=== PATIENT | male | born 1965 | race Caucasian/White ===

== ENCOUNTER 2023-03-08 13:03 | Inpatient (IN) | payer OTHER ==
[~2023-03-08] VITALS: Ht 165.1 cm; Wt 70.3 kg
[2023-03-08 18:36] LABS: GLUCOMETER DEV NAME(LOC) 2WR.2B
[2023-03-08 20:00] VITALS: BP 101/64; PULSE 74; RESP 16; TEMP 98.3; O2SAT 98
[2023-03-08] MEDS ORDERED: DOCUSATE SODIUM 283 MG/5 ML MINI-ENEMA PR PRN (21:30)
[2023-03-08] MEDS ORDERED: DEXTROSE 50%-WATER 25 GM/50 ML SYRINGE IVP PRN (21:30)
[2023-03-08] MEDS ORDERED: CLOPIDOGREL BISULFATE 75 MG TABLET PO ONE (21:30)
[2023-03-08] MEDS ORDERED: ONDANSETRON HCL 4 MG TABLET PO PRN (21:30)
[2023-03-08] MEDS: MELATONIN 5 MG TABLET PO PRN (22:44)
[2023-03-08] MEDS: SENNOSIDES 8.6 MG TABLET PO SCH (22:44)
[2023-03-08] MEDS: INSULIN LISPRO 100 UNITS/ML SQ PRN (22:45)
[2023-03-08] MEDS ORDERED: INSULIN GLARGINE,HUM.REC.ANLOG 100 UNITS/ML SQ ONE (23:00)
[2023-03-08] MEDS: OxyCODONE HCL 10 MG IR TABLET PO PRN (23:18)
[2023-03-09 00:43] VITALS: O2SAT 98
[2023-03-09 06:01] LABS: GLUCOMETER DEV NAME(LOC) 2WR.1C
[2023-03-09] MEDS: ACETAMINOPHEN 325 MG TABLET PO PRN ×3 (06:44→18:37)
[2023-03-09 06:46] LABS: GLUCOMETER DEV NAME(LOC) 2WR.1C
[2023-03-09 06:55] LABS: BASOPHILS % (AUTO) 0.4 % (0.0-2.0); EOSINOPHILS % (AUTO) 1.2 % (1.0-6.0); HEMATOCRIT 37.9 % (41-53); HEMOGLOBIN 12.8 g/dL (13.5-17.5); LYMPHOCYTES # (AUTO) 2.5 K/uL (1.0-4.8); LYMPHOCYTES % (AUTO) 26.9 % (22.0-44.0); MEAN CORPUSCULAR HEMOGLOBIN 29.9 pg (26.0-34.0); MEAN CORPUSCULAR HGB CONC 33.8 G/dL (31.0-37.0); MEAN CORPUSCULAR VOLUME 89 fL (80-100); MONOCYTES # (AUTO) 0.9 K/uL (0.1-1.0); MONOCYTES % (AUTO) 9.9 % (2.0-9.0); NEUTROPHILS # (AUTO) 5.7 K/uL (1.8-7.7); NEUTROPHILS % (AUTO) 61.6 % (40.0-70.0); PLATELET COUNT (AUTO) 620 K/uL (150-450); RED BLOOD CELL COUNT(AUTO) 4.29 MIL/uL (4.50-5.90); RED CELL DISTRIBUTION WIDTH 13.7 % (11.5-14.5)
[2023-03-09] MEDS ORDERED: PNEUMOCOCCAL VACCINE POLYVALENT 0.5 ML VIAL [PPSV23] IM. ONE (07:00)
[2023-03-09 07:25] LABS: ALANINE AMINOTRANSFERASE 49 U/L (12-78); ALKALINE PHOSPHATASE 116 U/L (46-116); ANION GAP 11 mmol/L (8-16); ASPARTATE AMINOTRANSFERASE 31 U/L (15-37); BILIRUBIN,TOTAL 0.5 mg/dL (0.1-1.0); CALCIUM, TOTAL 9.2 mg/dL (8.8-10.5); CARBON DIOXIDE 24 mmol/L (22-29); CHLORIDE 105 mmol/L (98-107); CREATININE 0.95 mg/dL (0.60-1.30); GLOMERULAR FILTR. RATE CALC > 60 mL/min (>60); GLUCOSE,RANDOM 137 mg/dL (70-110); SODIUM SERUM 140 mmol/L (136-145); TOTAL PROTEIN, SERUM 7.4 g/dL (6.4-8.2)
[2023-03-09] MEDS ORDERED: DAPAGLIFLOZIN PROPANEDIOL 5 MG TABLET PO SCH (08:00)
[2023-03-09] MEDS: DAPAGLIFLOZIN PROPANEDIOL 5 MG TABLET PO SCH ×2 (08:13→09:00)
[2023-03-09] MEDS: DOCUSATE SODIUM 100 MG CAPSULE PO SCH ×2 (08:14→21:27)
[2023-03-09] MEDS: LISINOPRIL 10 MG TABLET PO SCH (08:15)
[2023-03-09] MEDS: POLYETHYLENE GLYCOL 3350 17 GM PACKET PO SCH (08:18)
[2023-03-09] MEDS: ETHYL ALCOHOL 62% ANTISEPTIC NASAL SANITIZER 0.6 ML AMPUL NASAL SCH ×2 (08:18→21:27)
[2023-03-09] MEDS: EZETIMIBE 10 MG TABLET PO SCH (08:19)
[2023-03-09] MEDS: FAMOTIDINE 20 MG TABLET PO SCH (08:19)
[2023-03-09] MEDS: CARVEDILOL 6.25 MG TABLET PO SCH ×2 (08:19→21:31)
[2023-03-09] MEDS: ATORVASTATIN CALCIUM 40 MG TABLET PO SCH ×2 (09:00→21:27)
[2023-03-09] MEDS ORDERED: ATORVASTATIN CALCIUM 40 MG TABLET PO SCH (09:00)
[2023-03-09 09:05] VITALS: BP 119/67; PULSE 70; RESP 18; TEMP 98.6; O2SAT 98
[2023-03-09] MEDS: ENOXAPARIN SODIUM 40 MG/0.4 ML PF SYRINGE SQ SCH (09:23)
[2023-03-09] MEDS ORDERED: ENOXAPARIN SODIUM 30 MG/0.3 ML PF SYRINGE SQ SCH (10:00)
[2023-03-09 11:30] VITALS: BP 122/64; PULSE 81; RESP 18; O2SAT 98
[2023-03-09 12:46] LABS: GLUCOMETER DEV NAME(LOC) 2WR.2B
[2023-03-09 14:23] VITALS: O2SAT 98
[2023-03-09 17:06] LABS: GLUCOMETER DEV NAME(LOC) 2WR.2B
[2023-03-09] MEDS: INSULIN LISPRO 100 UNITS/ML SQ PRN ×2 (17:41→21:30)
[2023-03-09 20:10] VITALS: BP 96/60; PULSE 72; RESP 18; TEMP 98.7; O2SAT 97
[2023-03-09] MEDS: SENNOSIDES 8.6 MG TABLET PO SCH (21:27)
[2023-03-09] MEDS: MELATONIN 5 MG TABLET PO PRN (21:27)
[2023-03-09] MEDS: CLOPIDOGREL BISULFATE 75 MG TABLET PO SCH (21:27)
[2023-03-09] MEDS: INSULIN GLARGINE,HUM.REC.ANLOG 100 UNITS/ML SQ SCH (21:31)
[2023-03-09 23:26] VITALS: O2SAT 97
[2023-03-10 05:26] LABS: GLUCOMETER DEV NAME(LOC) 2WR.1C
[2023-03-10 06:41] LABS: GLUCOMETER DEV NAME(LOC) 2WR.2B
[2023-03-10 08:11] VITALS: BP 91/55; PULSE 67; RESP 18; TEMP 98.7; O2SAT 97
[2023-03-10] MEDS: POLYETHYLENE GLYCOL 3350 17 GM PACKET PO SCH (09:00)
[2023-03-10] MEDS: DAPAGLIFLOZIN PROPANEDIOL 5 MG TABLET PO SCH (09:46)
[2023-03-10] MEDS: DOCUSATE SODIUM 100 MG CAPSULE PO SCH ×2 (09:46→20:23)
[2023-03-10] MEDS: CARVEDILOL 6.25 MG TABLET PO SCH ×2 (09:46→20:24)
[2023-03-10] MEDS: ETHYL ALCOHOL 62% ANTISEPTIC NASAL SANITIZER 0.6 ML AMPUL NASAL SCH ×2 (09:46→20:22)
[2023-03-10] MEDS: FAMOTIDINE 20 MG TABLET PO SCH (09:47)
[2023-03-10] MEDS: LISINOPRIL 10 MG TABLET PO SCH (09:47)
[2023-03-10] MEDS: EZETIMIBE 10 MG TABLET PO SCH (09:47)
[2023-03-10] MEDS: ENOXAPARIN SODIUM 40 MG/0.4 ML PF SYRINGE SQ SCH (09:47)
[2023-03-10 13:36] LABS: GLUCOMETER DEV NAME(LOC) 2WR.1C
[2023-03-10] MEDS: OxyCODONE HCL 10 MG IR TABLET PO PRN (14:20)
[2023-03-10 18:26] LABS: GLUCOMETER DEV NAME(LOC) 2WR.1C
[2023-03-10 20:23] VITALS: BP 81/57; PULSE 81; RESP 20; TEMP 98.5; O2SAT 99
[2023-03-10] MEDS: SENNOSIDES 8.6 MG TABLET PO SCH ×2 (20:23→21:00)
[2023-03-10] MEDS: ATORVASTATIN CALCIUM 40 MG TABLET PO SCH (20:23)
[2023-03-10] MEDS: CLOPIDOGREL BISULFATE 75 MG TABLET PO SCH (20:23)
[2023-03-10] MEDS: INSULIN GLARGINE,HUM.REC.ANLOG 100 UNITS/ML SQ SCH (20:44)
[2023-03-10] MEDS: INSULIN LISPRO 100 UNITS/ML SQ PRN (20:45)
[2023-03-10 23:31] LABS: GLUCOMETER DEV NAME(LOC) 2WR.2B
[2023-03-11 01:15] VITALS: BP 100/50
[2023-03-11] MEDS: OxyCODONE HCL 10 MG IR TABLET PO PRN (01:15)
[2023-03-11 07:51] LABS: GLUCOMETER DEV NAME(LOC) 2WR.1C
[2023-03-11 08:30] VITALS: O2SAT 96
[2023-03-11] MEDS ORDERED: GABAPENTIN 100 MG CAPSULE PO SCH (09:00)
[2023-03-11] MEDS: CARVEDILOL 3.125 MG TABLET PO SCH ×2 (09:00→21:34)
[2023-03-11] MEDS: LISINOPRIL 10 MG TABLET PO SCH ×2 (09:04→09:30)
[2023-03-11] MEDS: EZETIMIBE 10 MG TABLET PO SCH ×2 (09:04→09:28)
[2023-03-11] MEDS: OxyCODONE HCL 5 MG IR TABLET PO PRN (09:04)
[2023-03-11] MEDS: POLYETHYLENE GLYCOL 3350 17 GM PACKET PO SCH (09:05)
[2023-03-11] MEDS: FAMOTIDINE 20 MG TABLET PO SCH ×2 (09:05→09:29)
[2023-03-11] MEDS: DOCUSATE SODIUM 100 MG CAPSULE PO SCH ×2 (09:05→21:34)
[2023-03-11] MEDS: ENOXAPARIN SODIUM 40 MG/0.4 ML PF SYRINGE SQ SCH (09:28)
[2023-03-11] MEDS: DAPAGLIFLOZIN PROPANEDIOL 5 MG TABLET PO SCH (09:29)
[2023-03-11] MEDS: ETHYL ALCOHOL 62% ANTISEPTIC NASAL SANITIZER 0.6 ML AMPUL NASAL SCH ×2 (09:29→21:35)
[2023-03-11] MEDS: GABAPENTIN 100 MG CAPSULE PO SCH ×2 (09:31→17:45)
[2023-03-11 10:00] VITALS: BP 128/76; PULSE 74; RESP 18; TEMP 98; O2SAT 96
[2023-03-11] MEDS: INSULIN LISPRO 100 UNITS/ML SQ PRN (17:47)
[2023-03-11 19:06] LABS: GLUCOMETER DEV NAME(LOC) 2WR.2B
[2023-03-11 20:01] LABS: GLUCOMETER DEV NAME(LOC) 2WR.1C
[2023-03-11 20:58] VITALS: BP 113/67; PULSE 76; RESP 16; TEMP 98.8; O2SAT 97; O2SAT 98
[2023-03-11] MEDS: SENNOSIDES 8.6 MG TABLET PO SCH (21:34)
[2023-03-11] MEDS: ATORVASTATIN CALCIUM 40 MG TABLET PO SCH (21:34)
[2023-03-11] MEDS: CLOPIDOGREL BISULFATE 75 MG TABLET PO SCH (21:34)
[2023-03-11] MEDS: GABAPENTIN 300 MG CAPSULE PO SCH (21:34)
[2023-03-11] MEDS: INSULIN GLARGINE,HUM.REC.ANLOG 100 UNITS/ML SQ SCH (21:43)
[2023-03-11 23:06] LABS: GLUCOMETER DEV NAME(LOC) 2WR.2B
[2023-03-12 07:06] LABS: GLUCOMETER DEV NAME(LOC) 2WR.2B
[2023-03-12 07:15] LABS: ANION GAP 10 mmol/L (8-16); CALCIUM, TOTAL 8.9 mg/dL (8.8-10.5); CARBON DIOXIDE 25 mmol/L (22-29); CHLORIDE 104 mmol/L (98-107); CREATININE 0.89 mg/dL (0.60-1.30); GLOMERULAR FILTR. RATE CALC > 60 mL/min (>60); GLUCOSE,RANDOM 114 mg/dL (70-110); POTASSIUM 3.9 mmol/L (3.5-5.1); SODIUM SERUM 139 mmol/L (136-145)
[2023-03-12] MEDS: OxyCODONE HCL 10 MG IR TABLET PO PRN (09:03)
[2023-03-12] MEDS: ETHYL ALCOHOL 62% ANTISEPTIC NASAL SANITIZER 0.6 ML AMPUL NASAL SCH ×2 (09:04→21:02)
[2023-03-12] MEDS: DOCUSATE SODIUM 100 MG CAPSULE PO SCH ×2 (09:04→21:02)
[2023-03-12] MEDS: ENOXAPARIN SODIUM 40 MG/0.4 ML PF SYRINGE SQ SCH (09:04)
[2023-03-12] MEDS: POLYETHYLENE GLYCOL 3350 17 GM PACKET PO SCH (09:04)
[2023-03-12] MEDS: GABAPENTIN 100 MG CAPSULE PO SCH ×2 (09:04→18:23)
[2023-03-12] MEDS: CARVEDILOL 3.125 MG TABLET PO SCH ×2 (09:04→21:02)
[2023-03-12] MEDS: DAPAGLIFLOZIN PROPANEDIOL 5 MG TABLET PO SCH (09:16)
[2023-03-12 10:00] VITALS: BP 119/77; PULSE 76; RESP 18; TEMP 97.9; O2SAT 99
[2023-03-12 12:11] LABS: GLUCOMETER DEV NAME(LOC) 2WR.1C
[2023-03-12] MEDS: INSULIN LISPRO 100 UNITS/ML SQ PRN ×2 (18:21→21:07)
[2023-03-12 19:41] LABS: GLUCOMETER DEV NAME(LOC) 2WR.1C
[2023-03-12 20:00] VITALS: BP 113/69; PULSE 78; RESP 19; TEMP 98.1; O2SAT 98
[2023-03-12] MEDS: ATORVASTATIN CALCIUM 40 MG TABLET PO SCH (21:02)
[2023-03-12] MEDS: CLOPIDOGREL BISULFATE 75 MG TABLET PO SCH (21:02)
[2023-03-12 21:06] LABS: GLUCOMETER DEV NAME(LOC) 2WR.1C
[2023-03-12] MEDS: INSULIN GLARGINE,HUM.REC.ANLOG 100 UNITS/ML SQ SCH (21:06)
[2023-03-12] MEDS: SENNOSIDES 8.6 MG TABLET PO SCH (21:18)
[2023-03-12] MEDS: GABAPENTIN 300 MG CAPSULE PO SCH (21:18)
[2023-03-12] MEDS: MELATONIN 5 MG TABLET PO PRN (21:27)
[2023-03-13] MEDS: DOCUSATE SODIUM 100 MG CAPSULE PO SCH ×2 (07:58→21:29)
[2023-03-13] MEDS: MULTIVITAMINS WITH MINERALS, THERAPEUTIC TABLET PO SCH (07:58)
[2023-03-13] MEDS: FAMOTIDINE 20 MG TABLET PO SCH (07:58)
[2023-03-13] MEDS: EZETIMIBE 10 MG TABLET PO SCH (07:59)
[2023-03-13] MEDS: LISINOPRIL 10 MG TABLET PO SCH (07:59)
[2023-03-13] MEDS: GABAPENTIN 100 MG CAPSULE PO SCH ×2 (08:00→17:06)
[2023-03-13] MEDS: CARVEDILOL 3.125 MG TABLET PO SCH ×2 (08:00→21:28)
[2023-03-13] MEDS: DAPAGLIFLOZIN PROPANEDIOL 5 MG TABLET PO SCH (08:00)
[2023-03-13] MEDS: ETHYL ALCOHOL 62% ANTISEPTIC NASAL SANITIZER 0.6 ML AMPUL NASAL SCH ×2 (08:02→21:29)
[2023-03-13] MEDS: POLYETHYLENE GLYCOL 3350 17 GM PACKET PO SCH (08:03)
[2023-03-13 08:06] LABS: GLUCOMETER DEV NAME(LOC) 2WR.1C
[2023-03-13] MEDS: ENOXAPARIN SODIUM 40 MG/0.4 ML PF SYRINGE SQ SCH (09:47)
[2023-03-13 12:05] VITALS: BP 121/68; PULSE 73; RESP 19; TEMP 98.1; O2SAT 98
[2023-03-13 12:46] LABS: GLUCOMETER DEV NAME(LOC) 2WR.2B
[2023-03-13] MEDS: OxyCODONE HCL 5 MG IR TABLET PO PRN ×2 (13:25→21:28)
[2023-03-13] MEDS: INSULIN LISPRO 100 UNITS/ML SQ PRN ×2 (17:52→21:41)
[2023-03-13 20:12] VITALS: BP 113/71; PULSE 83; RESP 18; TEMP 98.8; O2SAT 97
[2023-03-13] MEDS: SENNOSIDES 8.6 MG TABLET PO SCH (21:28)
[2023-03-13] MEDS: CLOPIDOGREL BISULFATE 75 MG TABLET PO SCH (21:28)
[2023-03-13] MEDS: ATORVASTATIN CALCIUM 40 MG TABLET PO SCH (21:28)
[2023-03-13] MEDS: GABAPENTIN 300 MG CAPSULE PO SCH (21:28)
[2023-03-13] MEDS: INSULIN GLARGINE,HUM.REC.ANLOG 100 UNITS/ML SQ SCH (21:41)
[2023-03-14 05:51] LABS: GLUCOMETER DEV NAME(LOC) 2WR.1C
[2023-03-14 05:51] LABS: GLUCOMETER DEV NAME(LOC) 2WR.1C
[2023-03-14 06:41] LABS: GLUCOMETER DEV NAME(LOC) 2WR.1C
[2023-03-14] MEDS: LISINOPRIL 10 MG TABLET PO SCH (08:04)
[2023-03-14 08:05] VITALS: BP 127/76; PULSE 74; RESP 18; TEMP 98.1; O2SAT 98
[2023-03-14] MEDS: MULTIVITAMINS WITH MINERALS, THERAPEUTIC TABLET PO SCH (08:05)
[2023-03-14] MEDS: CARVEDILOL 3.125 MG TABLET PO SCH ×2 (08:05→21:45)
[2023-03-14] MEDS: GABAPENTIN 100 MG CAPSULE PO SCH ×2 (08:05→17:00)
[2023-03-14] MEDS: ETHYL ALCOHOL 62% ANTISEPTIC NASAL SANITIZER 0.6 ML AMPUL NASAL SCH ×2 (08:05→21:47)
[2023-03-14] MEDS: FAMOTIDINE 20 MG TABLET PO SCH (08:05)
[2023-03-14] MEDS: POLYETHYLENE GLYCOL 3350 17 GM PACKET PO SCH (08:06)
[2023-03-14] MEDS: DOCUSATE SODIUM 100 MG CAPSULE PO SCH ×2 (08:06→21:47)
[2023-03-14] MEDS: DAPAGLIFLOZIN PROPANEDIOL 5 MG TABLET PO SCH (08:07)
[2023-03-14] MEDS: EZETIMIBE 10 MG TABLET PO SCH (08:07)
[2023-03-14] MEDS: ENOXAPARIN SODIUM 40 MG/0.4 ML PF SYRINGE SQ SCH (10:54)
[2023-03-14 17:21] LABS: GLUCOMETER DEV NAME(LOC) 2WR.1C
[2023-03-14 18:07] LABS: GLUCOMETER DEV NAME(LOC) 2WR.2B
[2023-03-14] MEDS: INSULIN LISPRO 100 UNITS/ML SQ PRN ×2 (18:33→21:48)
[2023-03-14 20:10] VITALS: BP 113/67; PULSE 75; RESP 18; TEMP 98; O2SAT 100
[2023-03-14] MEDS: ATORVASTATIN CALCIUM 40 MG TABLET PO SCH (21:45)
[2023-03-14] MEDS: CLOPIDOGREL BISULFATE 75 MG TABLET PO SCH (21:45)
[2023-03-14] MEDS: MELATONIN 5 MG TABLET PO PRN (21:47)
[2023-03-14] MEDS: SENNOSIDES 8.6 MG TABLET PO SCH (21:47)
[2023-03-14] MEDS: INSULIN GLARGINE,HUM.REC.ANLOG 100 UNITS/ML SQ SCH (21:49)
[2023-03-14] MEDS: GABAPENTIN 300 MG CAPSULE PO SCH (21:56)
[2023-03-14 22:36] LABS: GLUCOMETER DEV NAME(LOC) 2WR.2B
[2023-03-15 06:56] LABS: GLUCOMETER DEV NAME(LOC) 2WR.2B
[2023-03-15] MEDS: POLYETHYLENE GLYCOL 3350 17 GM PACKET PO SCH (09:55)
[2023-03-15] MEDS: EZETIMIBE 10 MG TABLET PO SCH (09:55)
[2023-03-15] MEDS: GABAPENTIN 100 MG CAPSULE PO SCH ×2 (09:56→16:18)
[2023-03-15] MEDS: DOCUSATE SODIUM 100 MG CAPSULE PO SCH ×2 (09:56→20:00)
[2023-03-15] MEDS: FAMOTIDINE 20 MG TABLET PO SCH (09:56)
[2023-03-15] MEDS: MULTIVITAMINS WITH MINERALS, THERAPEUTIC TABLET PO SCH (09:56)
[2023-03-15] MEDS: ENOXAPARIN SODIUM 40 MG/0.4 ML PF SYRINGE SQ SCH (09:56)
[2023-03-15 09:57] VITALS: BP 124/92; PULSE 66; RESP 19; TEMP 98.5; O2SAT 100
[2023-03-15] MEDS: CARVEDILOL 3.125 MG TABLET PO SCH ×2 (09:57→20:01)
[2023-03-15] MEDS: ETHYL ALCOHOL 62% ANTISEPTIC NASAL SANITIZER 0.6 ML AMPUL NASAL SCH ×2 (09:57→20:00)
[2023-03-15] MEDS: LISINOPRIL 10 MG TABLET PO SCH (09:57)
[2023-03-15] MEDS: DAPAGLIFLOZIN PROPANEDIOL 5 MG TABLET PO SCH (11:21)
[2023-03-15 12:26] LABS: GLUCOMETER DEV NAME(LOC) 2WR.2B
[2023-03-15 17:06] LABS: GLUCOMETER DEV NAME(LOC) 2WR.2B
[2023-03-15 20:00] VITALS: BP 108/55; PULSE 83; RESP 20; TEMP 98.8; O2SAT 98
[2023-03-15] MEDS: SENNOSIDES 8.6 MG TABLET PO SCH (20:00)
[2023-03-15] MEDS: ATORVASTATIN CALCIUM 40 MG TABLET PO SCH (20:01)
[2023-03-15] MEDS: MELATONIN 5 MG TABLET PO PRN (20:01)
[2023-03-15] MEDS: CLOPIDOGREL BISULFATE 75 MG TABLET PO SCH (20:01)
[2023-03-15] MEDS: GABAPENTIN 300 MG CAPSULE PO SCH (20:01)
[2023-03-15] MEDS: INSULIN GLARGINE,HUM.REC.ANLOG 100 UNITS/ML SQ SCH (20:05)
[2023-03-15] MEDS: INSULIN LISPRO 100 UNITS/ML SQ PRN (20:07)
[2023-03-15 21:47] LABS: GLUCOMETER DEV NAME(LOC) 2WR.2B
[2023-03-16 07:07] LABS: GLUCOMETER DEV NAME(LOC) 2WR.2B
[2023-03-16 08:30] VITALS: BP 116/70; PULSE 70; RESP 19; TEMP 98.3; O2SAT 99
[2023-03-16] MEDS: ENOXAPARIN SODIUM 40 MG/0.4 ML PF SYRINGE SQ SCH (08:40)
[2023-03-16] MEDS: GABAPENTIN 100 MG CAPSULE PO SCH ×2 (08:40→17:14)
[2023-03-16] MEDS: LISINOPRIL 10 MG TABLET PO SCH (08:40)
[2023-03-16] MEDS: DAPAGLIFLOZIN PROPANEDIOL 5 MG TABLET PO SCH (08:41)
[2023-03-16] MEDS: EZETIMIBE 10 MG TABLET PO SCH (08:41)
[2023-03-16] MEDS: CARVEDILOL 3.125 MG TABLET PO SCH ×2 (08:42→20:42)
[2023-03-16] MEDS: FAMOTIDINE 20 MG TABLET PO SCH (08:42)
[2023-03-16] MEDS: MULTIVITAMINS WITH MINERALS, THERAPEUTIC TABLET PO SCH (08:42)
[2023-03-16] MEDS: POLYETHYLENE GLYCOL 3350 17 GM PACKET PO SCH (08:44)
[2023-03-16] MEDS: DOCUSATE SODIUM 100 MG CAPSULE PO SCH ×2 (08:44→20:53)
[2023-03-16] MEDS: ETHYL ALCOHOL 62% ANTISEPTIC NASAL SANITIZER 0.6 ML AMPUL NASAL SCH ×2 (08:44→20:41)
[2023-03-16] MEDS: ACETAMINOPHEN 325 MG TABLET PO PRN (10:07)
[2023-03-16] MEDS: INSULIN LISPRO 100 UNITS/ML SQ PRN ×2 (14:10→20:41)
[2023-03-16 14:32] LABS: GLUCOMETER DEV NAME(LOC) 2WR.1C
[2023-03-16] MEDS: DICLOFENAC SODIUM 1% 100 GM GEL [2GM] TP SCH ×2 (15:11→20:42)
[2023-03-16 18:07] LABS: GLUCOMETER DEV NAME(LOC) 2WR.1C
[2023-03-16 20:00] VITALS: BP 107/65; PULSE 74; RESP 16; TEMP 98.7; O2SAT 99
[2023-03-16] MEDS: INSULIN GLARGINE,HUM.REC.ANLOG 100 UNITS/ML SQ SCH (20:40)
[2023-03-16] MEDS: SENNOSIDES 8.6 MG TABLET PO SCH (20:42)
[2023-03-16] MEDS: CLOPIDOGREL BISULFATE 75 MG TABLET PO SCH (20:42)
[2023-03-16] MEDS: GABAPENTIN 300 MG CAPSULE PO SCH (20:42)
[2023-03-16] MEDS: ATORVASTATIN CALCIUM 40 MG TABLET PO SCH (20:42)
[2023-03-17 00:02] LABS: GLUCOMETER DEV NAME(LOC) 2WR.2B
[2023-03-17 06:41] LABS: GLUCOMETER DEV NAME(LOC) 2WR.2B
[2023-03-17] MEDS: ETHYL ALCOHOL 62% ANTISEPTIC NASAL SANITIZER 0.6 ML AMPUL NASAL SCH ×2 (08:09→20:45)
[2023-03-17] MEDS: DOCUSATE SODIUM 100 MG CAPSULE PO SCH ×2 (08:10→20:37)
[2023-03-17] MEDS: MULTIVITAMINS WITH MINERALS, THERAPEUTIC TABLET PO SCH (08:10)
[2023-03-17] MEDS: FAMOTIDINE 20 MG TABLET PO SCH (08:10)
[2023-03-17] MEDS: CARVEDILOL 3.125 MG TABLET PO SCH ×2 (08:10→20:37)
[2023-03-17] MEDS: GABAPENTIN 100 MG CAPSULE PO SCH ×2 (08:10→16:37)
[2023-03-17] MEDS: ENOXAPARIN SODIUM 40 MG/0.4 ML PF SYRINGE SQ SCH (08:10)
[2023-03-17] MEDS: LISINOPRIL 10 MG TABLET PO SCH (08:11)
[2023-03-17] MEDS: DAPAGLIFLOZIN PROPANEDIOL 5 MG TABLET PO SCH (08:11)
[2023-03-17] MEDS: POLYETHYLENE GLYCOL 3350 17 GM PACKET PO SCH (08:11)
[2023-03-17] MEDS: EZETIMIBE 10 MG TABLET PO SCH (08:11)
[2023-03-17] MEDS: DICLOFENAC SODIUM 1% 100 GM GEL [2GM] TP SCH ×3 (08:12→20:37)
[2023-03-17 08:30] VITALS: BP 119/69; PULSE 69; RESP 18; TEMP 98.2; O2SAT 98
[2023-03-17 12:57] LABS: GLUCOMETER DEV NAME(LOC) 2WR.2B
[2023-03-17 17:31] LABS: GLUCOMETER DEV NAME(LOC) 2WR.1C
[2023-03-17 20:36] VITALS: BP 109/64; PULSE 74; RESP 16; TEMP 98.7; O2SAT 97
[2023-03-17] MEDS: SENNOSIDES 8.6 MG TABLET PO SCH (20:37)
[2023-03-17] MEDS: ATORVASTATIN CALCIUM 40 MG TABLET PO SCH (20:37)
[2023-03-17] MEDS: MELATONIN 5 MG TABLET PO PRN (20:37)
[2023-03-17] MEDS: CLOPIDOGREL BISULFATE 75 MG TABLET PO SCH (20:37)
[2023-03-17] MEDS: INSULIN GLARGINE,HUM.REC.ANLOG 100 UNITS/ML SQ SCH (20:43)
[2023-03-17] MEDS: INSULIN LISPRO 100 UNITS/ML SQ PRN (20:44)
[2023-03-17] MEDS: ACETAMINOPHEN 325 MG TABLET PO PRN (20:45)
[2023-03-17] MEDS: GABAPENTIN 300 MG CAPSULE PO SCH (20:46)
[2023-03-17 21:38] LABS: GLUCOMETER DEV NAME(LOC) 2WR.1C
[2023-03-18 07:21] LABS: GLUCOMETER DEV NAME(LOC) 2WR.2B
[2023-03-18 08:01] VITALS: BP 93/61; PULSE 65; RESP 19; TEMP 98.1; O2SAT 97
[2023-03-18] MEDS: LISINOPRIL 10 MG TABLET PO SCH (09:00)
[2023-03-18] MEDS: CARVEDILOL 3.125 MG TABLET PO SCH (09:00)
[2023-03-18] MEDS: DAPAGLIFLOZIN PROPANEDIOL 5 MG TABLET PO SCH (09:01)
[2023-03-18] MEDS: MULTIVITAMINS WITH MINERALS, THERAPEUTIC TABLET PO SCH (09:01)
[2023-03-18] MEDS: GABAPENTIN 100 MG CAPSULE PO SCH ×2 (09:01→16:28)
[2023-03-18] MEDS: DOCUSATE SODIUM 100 MG CAPSULE PO SCH ×2 (09:01→21:09)
[2023-03-18] MEDS: ETHYL ALCOHOL 62% ANTISEPTIC NASAL SANITIZER 0.6 ML AMPUL NASAL SCH ×2 (09:02→21:10)
[2023-03-18] MEDS: DICLOFENAC SODIUM 1% 100 GM GEL [2GM] TP SCH ×3 (09:02→21:09)
[2023-03-18] MEDS: EZETIMIBE 10 MG TABLET PO SCH (09:02)
[2023-03-18] MEDS: FAMOTIDINE 20 MG TABLET PO SCH (09:02)
[2023-03-18] MEDS: POLYETHYLENE GLYCOL 3350 17 GM PACKET PO SCH (09:03)
[2023-03-18] MEDS: ENOXAPARIN SODIUM 40 MG/0.4 ML PF SYRINGE SQ SCH (09:06)
[2023-03-18 10:00] VITALS: BP 101/68; PULSE 75
[2023-03-18 12:08] LABS: GLUCOMETER DEV NAME(LOC) 2WR.2B
[2023-03-18 17:57] LABS: GLUCOMETER DEV NAME(LOC) 2WR.2B
[2023-03-18] MEDS: INSULIN LISPRO 100 UNITS/ML SQ PRN (21:07)
[2023-03-18] MEDS: INSULIN GLARGINE,HUM.REC.ANLOG 100 UNITS/ML SQ SCH (21:08)
[2023-03-18 21:09] VITALS: BP 97/59; PULSE 61; RESP 16; TEMP 97.8; O2SAT 99
[2023-03-18] MEDS: ATORVASTATIN CALCIUM 40 MG TABLET PO SCH (21:09)
[2023-03-18] MEDS: GABAPENTIN 300 MG CAPSULE PO SCH (21:09)
[2023-03-18] MEDS: ACETAMINOPHEN 325 MG TABLET PO PRN (21:09)
[2023-03-18] MEDS: SENNOSIDES 8.6 MG TABLET PO SCH (21:10)
[2023-03-18] MEDS: MELATONIN 5 MG TABLET PO PRN (21:10)
[2023-03-18] MEDS: CLOPIDOGREL BISULFATE 75 MG TABLET PO SCH (21:10)
[2023-03-19 01:51] LABS: GLUCOMETER DEV NAME(LOC) 2WR.2B
[2023-03-19 07:01] LABS: GLUCOMETER DEV NAME(LOC) 2WR.2B
[2023-03-19] MEDS: ETHYL ALCOHOL 62% ANTISEPTIC NASAL SANITIZER 0.6 ML AMPUL NASAL SCH ×2 (08:26→21:17)
[2023-03-19] MEDS: FAMOTIDINE 20 MG TABLET PO SCH (08:28)
[2023-03-19] MEDS: DAPAGLIFLOZIN PROPANEDIOL 5 MG TABLET PO SCH (08:28)
[2023-03-19] MEDS: MULTIVITAMINS WITH MINERALS, THERAPEUTIC TABLET PO SCH (08:28)
[2023-03-19] MEDS: GABAPENTIN 100 MG CAPSULE PO SCH ×2 (08:28→16:36)
[2023-03-19] MEDS: LISINOPRIL 10 MG TABLET PO SCH (08:29)
[2023-03-19] MEDS: ENOXAPARIN SODIUM 40 MG/0.4 ML PF SYRINGE SQ SCH (08:29)
[2023-03-19] MEDS: EZETIMIBE 10 MG TABLET PO SCH (08:29)
[2023-03-19] MEDS: DOCUSATE SODIUM 100 MG CAPSULE PO SCH ×2 (08:30→21:18)
[2023-03-19] MEDS: DICLOFENAC SODIUM 1% 100 GM GEL [2GM] TP SCH ×3 (08:31→21:19)
[2023-03-19] MEDS: POLYETHYLENE GLYCOL 3350 17 GM PACKET PO SCH (08:32)
[2023-03-19 09:02] VITALS: BP 129/73; PULSE 60; RESP 18; TEMP 98.1; O2SAT 97
[2023-03-19 16:12] LABS: GLUCOMETER DEV NAME(LOC) 2WR.1C
[2023-03-19 18:21] LABS: GLUCOMETER DEV NAME(LOC) 2WR.2B
[2023-03-19 21:00] VITALS: BP 116/69; PULSE 66; RESP 18; TEMP 98.1; O2SAT 99
[2023-03-19] MEDS: ATORVASTATIN CALCIUM 40 MG TABLET PO SCH (21:18)
[2023-03-19] MEDS: CLOPIDOGREL BISULFATE 75 MG TABLET PO SCH (21:18)
[2023-03-19] MEDS: GABAPENTIN 300 MG CAPSULE PO SCH (21:18)
[2023-03-19] MEDS: SENNOSIDES 8.6 MG TABLET PO SCH (21:18)
[2023-03-19] MEDS: MELATONIN 5 MG TABLET PO PRN (21:22)
[2023-03-19] MEDS: INSULIN GLARGINE,HUM.REC.ANLOG 100 UNITS/ML SQ SCH (21:35)
[2023-03-19] MEDS: INSULIN LISPRO 100 UNITS/ML SQ PRN (21:41)
[2023-03-19 22:48] LABS: GLUCOMETER DEV NAME(LOC) 2WR.2B
[2023-03-20 07:12] LABS: GLUCOMETER DEV NAME(LOC) 2WR.2B
[2023-03-20] MEDS: DICLOFENAC SODIUM 1% 100 GM GEL [2GM] TP SCH ×3 (07:48→20:22)
[2023-03-20] MEDS: ETHYL ALCOHOL 62% ANTISEPTIC NASAL SANITIZER 0.6 ML AMPUL NASAL SCH ×2 (07:48→20:49)
[2023-03-20] MEDS: DOCUSATE SODIUM 100 MG CAPSULE PO SCH ×2 (07:49→20:21)
[2023-03-20] MEDS: EZETIMIBE 10 MG TABLET PO SCH (07:49)
[2023-03-20] MEDS: POLYETHYLENE GLYCOL 3350 17 GM PACKET PO SCH (07:49)
[2023-03-20] MEDS: MULTIVITAMINS WITH MINERALS, THERAPEUTIC TABLET PO SCH (07:49)
[2023-03-20] MEDS: DAPAGLIFLOZIN PROPANEDIOL 5 MG TABLET PO SCH (07:49)
[2023-03-20] MEDS: GABAPENTIN 100 MG CAPSULE PO SCH ×2 (07:49→16:34)
[2023-03-20] MEDS: FAMOTIDINE 20 MG TABLET PO SCH (07:49)
[2023-03-20] MEDS: LISINOPRIL 10 MG TABLET PO SCH (07:53)
[2023-03-20 08:05] VITALS: BP 98/62; PULSE 65; RESP 18; TEMP 98.2; O2SAT 98
[2023-03-20] MEDS: ENOXAPARIN SODIUM 40 MG/0.4 ML PF SYRINGE SQ SCH (08:23)
[2023-03-20] MEDS ORDERED: MULT-1239 PO (11:18)
[2023-03-20] MEDS ORDERED: ASPI-1444 PO (11:18)
[2023-03-20] MEDS ORDERED: ATOR40TA71 PO (11:18)
[2023-03-20] MEDS ORDERED: GABA-1216 PO (11:18)
[2023-03-20] MEDS ORDERED: DICL100G60 TP (11:18)
[2023-03-20] MEDS ORDERED: INSU100V SQ (11:18)
[2023-03-20] MEDS ORDERED: DAPA5TAB PO (11:18)
[2023-03-20] MEDS ORDERED: FAMO20 PO (11:18)
[2023-03-20] MEDS ORDERED: INSLAN SQ (11:18)
[2023-03-20] MEDS ORDERED: CLOP75TA60 PO (11:18)
[2023-03-20] MEDS ORDERED: EZET10TA57 PO (11:18)
[2023-03-20] MEDS ORDERED: ACET325T51 PO (11:18)
[2023-03-20] MEDS ORDERED: GABA-1181 PO (11:18)
[2023-03-20 11:52] LABS: GLUCOMETER DEV NAME(LOC) 2WR.2B
[2023-03-20 16:58] LABS: GLUCOMETER DEV NAME(LOC) 2WR.2B
[2023-03-20] MEDS: INSULIN LISPRO 100 UNITS/ML SQ PRN ×2 (17:47→20:48)
[2023-03-20] MEDS: ATORVASTATIN CALCIUM 40 MG TABLET PO SCH (20:20)
[2023-03-20] MEDS: GABAPENTIN 300 MG CAPSULE PO SCH (20:21)
[2023-03-20 20:22] VITALS: BP 111/69; PULSE 66; RESP 18; TEMP 99; O2SAT 100
[2023-03-20] MEDS: CLOPIDOGREL BISULFATE 75 MG TABLET PO SCH (20:22)
[2023-03-20] MEDS: SENNOSIDES 8.6 MG TABLET PO SCH (20:22)
[2023-03-20] MEDS: INSULIN GLARGINE,HUM.REC.ANLOG 100 UNITS/ML SQ SCH (20:47)
[2023-03-20] MEDS: MELATONIN 5 MG TABLET PO PRN (20:50)
[2023-03-20 22:32] LABS: GLUCOMETER DEV NAME(LOC) 2WR.2B
[2023-03-21 07:12] LABS: GLUCOMETER DEV NAME(LOC) 2WR.1C
[2023-03-21 08:01] VITALS: BP 108/69; PULSE 64; RESP 18; TEMP 98.3; O2SAT 97
[2023-03-21] MEDS: ETHYL ALCOHOL 62% ANTISEPTIC NASAL SANITIZER 0.6 ML AMPUL NASAL SCH ×2 (08:13→21:35)
[2023-03-21] MEDS: FAMOTIDINE 20 MG TABLET PO SCH (08:13)
[2023-03-21] MEDS: ENOXAPARIN SODIUM 40 MG/0.4 ML PF SYRINGE SQ SCH (08:13)
[2023-03-21] MEDS: MULTIVITAMINS WITH MINERALS, THERAPEUTIC TABLET PO SCH (08:13)
[2023-03-21] MEDS: GABAPENTIN 100 MG CAPSULE PO SCH ×2 (08:13→16:07)
[2023-03-21] MEDS: DOCUSATE SODIUM 100 MG CAPSULE PO SCH ×2 (08:13→21:36)
[2023-03-21] MEDS: DICLOFENAC SODIUM 1% 100 GM GEL [2GM] TP SCH ×3 (08:14→21:37)
[2023-03-21] MEDS: DAPAGLIFLOZIN PROPANEDIOL 5 MG TABLET PO SCH (08:14)
[2023-03-21] MEDS: EZETIMIBE 10 MG TABLET PO SCH (08:14)
[2023-03-21] MEDS: POLYETHYLENE GLYCOL 3350 17 GM PACKET PO SCH (08:19)
[2023-03-21] MEDS: INSULIN LISPRO 100 UNITS/ML SQ PRN ×2 (12:27→21:48)
[2023-03-21 17:12] LABS: GLUCOMETER DEV NAME(LOC) 2WR.2B
[2023-03-21 17:12] LABS: GLUCOMETER DEV NAME(LOC) 2WR.1C
[2023-03-21 20:00] VITALS: BP 112/67; PULSE 76; RESP 20; TEMP 98.5; O2SAT 97
[2023-03-21] MEDS: MELATONIN 5 MG TABLET PO PRN (21:36)
[2023-03-21] MEDS: CLOPIDOGREL BISULFATE 75 MG TABLET PO SCH (21:36)
[2023-03-21] MEDS: SENNOSIDES 8.6 MG TABLET PO SCH (21:36)
[2023-03-21] MEDS: GABAPENTIN 300 MG CAPSULE PO SCH (21:36)
[2023-03-21] MEDS: INSULIN GLARGINE,HUM.REC.ANLOG 100 UNITS/ML SQ SCH (21:48)
[2023-03-21] MEDS: ATORVASTATIN CALCIUM 40 MG TABLET PO SCH (21:57)
[2023-03-22 00:22] LABS: GLUCOMETER DEV NAME(LOC) 2WR.1C
[2023-03-22 08:02] VITALS: BP 124/71; PULSE 67; RESP 18; TEMP 98.5; O2SAT 97
[2023-03-22] MEDS: EZETIMIBE 10 MG TABLET PO SCH (08:15)
[2023-03-22] MEDS: DAPAGLIFLOZIN PROPANEDIOL 5 MG TABLET PO SCH (08:15)
[2023-03-22] MEDS: ETHYL ALCOHOL 62% ANTISEPTIC NASAL SANITIZER 0.6 ML AMPUL NASAL SCH ×2 (08:16→20:54)
[2023-03-22] MEDS: DICLOFENAC SODIUM 1% 100 GM GEL [2GM] TP SCH ×3 (08:16→20:53)
[2023-03-22] MEDS: FAMOTIDINE 20 MG TABLET PO SCH (08:16)
[2023-03-22] MEDS: DOCUSATE SODIUM 100 MG CAPSULE PO SCH ×2 (08:16→20:52)
[2023-03-22] MEDS: MULTIVITAMINS WITH MINERALS, THERAPEUTIC TABLET PO SCH (08:16)
[2023-03-22] MEDS: GABAPENTIN 100 MG CAPSULE PO SCH ×2 (08:16→16:29)
[2023-03-22] MEDS: POLYETHYLENE GLYCOL 3350 17 GM PACKET PO SCH (08:22)
[2023-03-22] MEDS: ENOXAPARIN SODIUM 40 MG/0.4 ML PF SYRINGE SQ SCH (09:28)
[2023-03-22 12:13] LABS: GLUCOMETER DEV NAME(LOC) 2WR.1C
[2023-03-22 13:08] LABS: GLUCOMETER DEV NAME(LOC) 2WR.1C
[2023-03-22] MEDS: INSULIN LISPRO 100 UNITS/ML SQ PRN ×2 (17:42→21:08)
[2023-03-22 17:57] LABS: GLUCOMETER DEV NAME(LOC) 2WR.1C
[2023-03-22] MEDS: ATORVASTATIN CALCIUM 40 MG TABLET PO SCH (20:52)
[2023-03-22] MEDS: GABAPENTIN 300 MG CAPSULE PO SCH (20:52)
[2023-03-22] MEDS: MELATONIN 5 MG TABLET PO PRN (20:53)
[2023-03-22] MEDS: CLOPIDOGREL BISULFATE 75 MG TABLET PO SCH (20:53)
[2023-03-22] MEDS: SENNOSIDES 8.6 MG TABLET PO SCH (20:53)
[2023-03-22 21:00] VITALS: BP 128/78; PULSE 70; RESP 18; TEMP 98.4; O2SAT 98
[2023-03-22] MEDS: INSULIN GLARGINE,HUM.REC.ANLOG 100 UNITS/ML SQ SCH (21:06)
[2023-03-22 23:07] LABS: GLUCOMETER DEV NAME(LOC) 2WR.1C
[2023-03-23] MEDS: ETHYL ALCOHOL 62% ANTISEPTIC NASAL SANITIZER 0.6 ML AMPUL NASAL SCH (07:33)
[2023-03-23] MEDS: DOCUSATE SODIUM 100 MG CAPSULE PO SCH (07:33)
[2023-03-23] MEDS: DAPAGLIFLOZIN PROPANEDIOL 5 MG TABLET PO SCH (07:34)
[2023-03-23] MEDS: EZETIMIBE 10 MG TABLET PO SCH (07:34)
[2023-03-23] MEDS: POLYETHYLENE GLYCOL 3350 17 GM PACKET PO SCH (07:34)
[2023-03-23] MEDS: GABAPENTIN 100 MG CAPSULE PO SCH ×2 (07:35→16:22)
[2023-03-23] MEDS: FAMOTIDINE 20 MG TABLET PO SCH (07:35)
[2023-03-23] MEDS: MULTIVITAMINS WITH MINERALS, THERAPEUTIC TABLET PO SCH (07:35)
[2023-03-23] MEDS: DICLOFENAC SODIUM 1% 100 GM GEL [2GM] TP SCH ×2 (07:35→16:22)
[2023-03-23 08:05] VITALS: BP 101/66; PULSE 68; RESP 18; TEMP 98.2; O2SAT 98
[2023-03-23] MEDS: ENOXAPARIN SODIUM 40 MG/0.4 ML PF SYRINGE SQ SCH (08:59)
[2023-03-23 12:12] LABS: GLUCOMETER DEV NAME(LOC) 2WR.2B
[2023-03-23 16:33] LABS: GLUCOMETER DEV NAME(LOC) 2WR.1C
[2023-03-23 16:48] LABS: GLUCOMETER DEV NAME(LOC) 2WR.1C
== END 2023-03-23 18:48 | disposition home or self-care (01) | DRG 563 ==
LOC: 2WR 16:14
PROVIDERS: ADMIT Physical Medicine & Rehabilitation; ATTEND Physical Medicine & Rehabilitation
PROC: 2W3GX1Z Immobilization of Right Thumb using Splint (ICD-10-PCS; principal; 2023-03-09)
DX: S62.316A Displaced fracture of base of fifth metacarpal bone, right hand, initial encounter for closed fracture (principal); S82.041A Displaced comminuted fracture of right patella, initial encounter for closed fracture; E46 Unspecified protein-calorie malnutrition; S82.51XA Displaced fracture of medial malleolus of right tibia, initial encounter for closed fracture; E11.9 Type 2 diabetes mellitus without complications; Z79.02 Long term (current) use of antithrombotics/antiplatelets; E78.5 Hyperlipidemia, unspecified; I10 Essential (primary) hypertension; D75.839 Thrombocytosis, unspecified; I25.10 Atherosclerotic heart disease of native coronary artery without angina pectoris; I95.9 Hypotension, unspecified; R26.9 Unspecified abnormalities of gait and mobility; I25.2 Old myocardial infarction; Z79.01 Long term (current) use of anticoagulants; Z79.4 Long term (current) use of insulin; Z83.3 Family history of diabetes mellitus; Z95.5 Presence of coronary angioplasty implant and graft; V69.88XA Occupant (driver) (passenger) of heavy transport vehicle injured in other specified transport accidents, initial encounter; Y93.89 Activity, other specified; Y92.89 Other specified places as the place of occurrence of the external cause; Y99.8 Other external cause status
CPT/HCPCS: 80048; 80053; 82962; 85025; 87081; 93970; 97110; 97112; 97116; 97140; 97150; 97163; 97166; 97530; 97535; 99366; J1650; J1815; Q9967